=== PATIENT | female | born 1965 | race Caucasian/White ===

== ENCOUNTER → 2017-07-06 | Outpatient (CLI) | payer BC ==
[~2017-07-06] MED LIST: Bp med PO; CETI-158 PO; DULO30CA2 PO; LEVO112T4 PO; PSEU120T9 PO; VALS40TA2 PO
[2017-07-06 14:22] LABS: ALANINE AMINOTRANSFERASE 32 U/L (12-78); ALBUMIN 3.9 g/dL (3.4-5.0); ANION GAP 6 mmol/L (5-15); CALCIUM 9.2 mg/dL (8.5-10.1); CHLORIDE 104 mmol/L (98-107); CREATININE 1.01 mg/dL (0.55-1.02)
[2017-07-06 14:24] LABS: ALKALINE PHOSPHATASE 89 U/L (45-117); BILIRUBIN,TOTAL 0.4 mg/dL (0.2-1.0); TOTAL PROTEIN 8.1 g/dL (6.4-8.2)
== END | disposition home or self-care (01) ==
LOC: STAR 13:05
PROVIDERS: ATTEND Orthopaedic Surgery
DX: Z01.818 Encounter for other preprocedural examination (principal); M24.152 Other articular cartilage disorders, left hip
CPT/HCPCS: 36415; 80053

== ENCOUNTER 2017-07-12 09:28 | Day surgery (SDC) | payer BC ==
[~2017-07-12] VITALS: Ht 170.2 cm; Wt 90.4 kg
[2017-07-12] MEDS ORDERED: LACTATED RINGERS 1,000 ML IV SCH (09:50)
[2017-07-12] MEDS ORDERED: PROMETHAZINE 25 MG SUPP PR PRN (10:00)
[2017-07-12] MEDS ORDERED: LABETALOL 5MG/ML, 20ML IV PRN (10:00)
[2017-07-12] MEDS ORDERED: MEPERIDINE/PF 25MG/0.5ML IVPush PRN (10:00)
[2017-07-12] MEDS ORDERED: LORazepam 2 MG/ML, 1ML IVPush PRN (10:00)
[2017-07-12] MEDS ORDERED: ALBUTEROL SULFATE 2.5 MG/3 ML NPPB PRN (10:00)
[2017-07-12] MEDS ORDERED: HYDROmorphone 1 MG/ML, 1ML IV PRN (10:00)
[2017-07-12] MEDS ORDERED: GABAPENTIN 300 MG CAPSULE PO ONE (10:00)
[2017-07-12] MEDS ORDERED: OXYcodone 5 MG/5 ML ORAL.SOL UDC PO PRN (10:00)
[2017-07-12] MEDS ORDERED: OxyconTIN ER 20 MG TAB.ER PO ONE (10:00)
[2017-07-12] MEDS ORDERED: ONDANSETRON ODT 8 MG PO ONE (10:00)
[2017-07-12] MEDS ORDERED: hydrALAzine 20 MG/ML, 1ML IV PRN (10:00)
[2017-07-12] MEDS ORDERED: MORPHINE SULFATE 4 MG/ML, 1ML IVPush PRN (10:00)
[2017-07-12] MEDS ORDERED: PROMETHAZINE 25 MG/ML, 1ML IM PRN (10:00)
[2017-07-12] MEDS ORDERED: ACETAMINOPHEN 500 MG TABLET PO ONE (10:00)
[2017-07-12] MEDS ORDERED: PROMETHAZINE 25 MG/ML, 1ML IV PRN (10:00)
[2017-07-12] MEDS ORDERED: MIDAZOLAM 1 MG/ML, 2ML ONE (10:14)
[2017-07-12] MEDS ORDERED: ROPIvacaine/PF 0.5%, 30 ML ONE (10:50)
[2017-07-12] MEDS ORDERED: EPINEPHRINE 1 MG/ML, 1ML ONE ×2 (10:50→10:51)
[2017-07-12] MEDS ORDERED: ROCURONIUM 10 MG/ML,10ML ONE (11:00)
[2017-07-12] MEDS ORDERED: LABETALOL 5MG/ML 40ML VIAL ONE (11:00)
[2017-07-12] MEDS ORDERED: PROPOFOL 10 MG/ML, 20ML ONE (11:00)
[2017-07-12] MEDS ORDERED: CEFAZOLIN 1,000 MG ONE (11:00)
[2017-07-12] MEDS ORDERED: DEXAMETHASONE 4 MG/ML, 1ML ONE (11:00)
[2017-07-12] MEDS ORDERED: SUGAMMADEX 200 MG/2 ML IVPush ONE ×2 (11:30→11:31)
[2017-07-12] MEDS ORDERED: FENTANYL PF 100 MCG/2ML ONE (12:29)
[2017-07-12] MEDS: FENTANYL PF 100 MCG/2ML IV PRN ×2 (12:31→12:55)
[2017-07-12] MEDS ORDERED: FENTANYL PF 250 MCG/5ML ONE (13:38)
[2017-07-12] MEDS ORDERED: OXYcodone/APAP 5/325MG TABLET PO PRN (14:30)
== END 2017-07-12 18:00 | disposition home or self-care (01) ==
LOC: OUT 09:28
PROVIDERS: ATTEND Orthopaedic Surgery
DX: S73.192A Other sprain of left hip, initial encounter (principal); M65.852 Other synovitis and tenosynovitis, left thigh; M16.12 Unilateral primary osteoarthritis, left hip; M25.852 Other specified joint disorders, left hip; F32.9 Major depressive disorder, single episode, unspecified; E03.9 Hypothyroidism, unspecified; X58.XXXA Exposure to other specified factors, initial encounter; Y93.89 Activity, other specified; Y92.89 Other specified places as the place of occurrence of the external cause; Y99.8 Other external cause status; Z88.1 Allergy status to other antibiotic agents; Z88.5 Allergy status to narcotic agent
CPT/HCPCS: 29914; 29915; 73502; 76001; J0171; J0690; J1100; J2250; J2704; J2795; J3010; J7120; Q0162